=== PATIENT | female | born 1990 | race Caucasian/White ===

== ENCOUNTER 2022-05-10 16:06 | Emergency (ER) | payer BC, SELFPAY ==
[2022-05-10 18:03] VITALS: BP 153/99; PULSE 113; RESP 18; TEMP 38.4; O2SAT 95; BMI 68.3
--- NOTE | 2022-05-10 18:24 | ED_ITS ---
HPI - General Adult General Chief complaint: General Medical Stated complaint: strep turned to an abscess/ sent from dr office Time Seen by Provider: 05/10/22 16:52 Source: patient Mode of arrival: ambulatory Limitations: no limitations History of Present Illness HPI narrative: Patient with sore throat seen urgent care on 05/07 strep was negative came here as pain in throat getting worse painful to swallow low grade fever has some chills no shortness of breath or cough voice is normal Related Data Home Medications Medication Instructions Recorded Confirmed hydrochlorothiazide 25 mg tablet 37.5 mg PO DAILY 05/07/22 levothyroxine 75 mcg tablet 75 mcg PO DAILY 05/07/22 lisinopril 10 mg tablet 10 mg PO DAILY 05/07/22 loratadine 10 mg tablet (Claritin) 10 mg PO DAILY 05/07/22 Previous Rx's Medication Instructions Recorded azithromycin 250 mg tablet See Rx Instructions PO .COMPLEX #6 05/07/22 tabs fluconazole 150 mg tablet 150 mg PO Q3D 2 doses #2 tabs 05/07/22 (Diflucan) cefuroxime axetil 500 mg tablet 500 mg PO BID 10 days #20 tabs 05/10/22 ibuprofen 100 mg/5 mL oral 600 mg (30 mL) PO Q6H PRN fever or 05/10/22 suspension pain #250 mL Allergies Allergy/AdvReac Type Severity Reaction Status Date / Time tree nut [TREE NUT] Allergy Severe ITCHING Unverified 05/07/22 09:18 AND SOB TREE FRUIT Allergy Severe ITCHING, Uncoded 05/07/22 09:18 SOB Review of Systems Review of Systems: Yes all other systems are reviewed and are negative [facility] Social History Social History Advance Directives: No Advance Directives Information Provided: No Physical Exam ED Vital Signs: Vital Signs - 24 hr 05/10/22 18:03 05/10/22 18:44 05/10/22 19:53 Temperature 101.1 F H 100.0 F 100.5 F H Pulse Rate 113 H 116 H 110 H Respiratory Rate 18 16 18 Blood Pressure 153/99 H 148/100 H 153/107 H Pulse Oximetry 95 96 96 Oxygen Delivery Method Room Air Room Air BMI result Body Mass Index 68.3 Appearance: Alert. Oriented X3. No acute distress. Eyes: PERRLA, No Nystagmus ENT: Erythema posterior pharynx with exudate on bilateral tonsils Neck: Normal inspection. Neck supple. CVS: Normal heart rate and rhythm. Pulses normal. Respiratory: No respiratory distress. Equal air entry bilateral, no wheezing/rales/rhonchi Abdomen: Soft and nontender. Bowel sounds are present, no mass palpable, no CVA tenderness Skin: Skin warm and dry. Normal skin color. Normal skin turgor. Extremities: No lower extremity edema. No calf tenderness Neuro: Oriented X 3. No motor deficit. No sensory deficit.No cerebellar signs , cranial nerves II-XII intact Medical Decision Making MDM Narrative Medical decision making narrative: Patient clinically has strep throat was given IM Rocephin in the ER will give prescription for Ceftin advised to follow-up as outpatient Discharge Plan Discharge Clinical Impression: Strep pharyngitis Patient Disposition: Home, Self-Care Instructions: Strep Throat (ED) Additional Instructions: Drink plenty of fluids Antibiotics as prescribed Follow with PCP if not better Prescriptions: New cefuroxime axetil 500 mg tablet 500 mg PO BID 10 Days Qty: 20 0RF ibuprofen 100 mg/5 mL suspension 600 mg PO Q6H PRN (Reason: fever or pain) Qty: 250 0RF No Action levothyroxine 75 mcg tablet 75 mcg PO DAILY hydrochlorothiazide 25 mg tablet 37.5 mg PO DAILY lisinopril 10 mg tablet 10 mg PO DAILY loratadine [Claritin] 10 mg tablet 10 mg PO DAILY azithromycin 250 mg tablet See Rx Instructions PO .COMPLEX Qty: 6 0RF Rx Instructions: take 500 mg today (day 1), then 250 mg for 4 days (days 2-5) PO fluconazole [Diflucan] 150 mg tablet 150 mg PO Q3D 0 Days Qty: 2 0RF Interventions: ED Discharge Assessment Last Done: 05/10/22 19:56 Discharge Date/Time: 05/10/22 19:56
[2022-05-10 18:44] VITALS: BP 148/100; PULSE 116; RESP 16; TEMP 37.8; O2SAT 96
[2022-05-10] MEDS: cefTRIAXone sodium 1 GM, Lidocaine HCl 1 % MPF 2.1 ML IM (18:49)
[2022-05-10] MEDS: Acetaminophen Oral Liquid 650 MG/20.3 ML SOLUTION PO (18:49)
[2022-05-10] MEDS: Lidocaine HCl Viscous 2 % 15 ML SOLUTION MUCOUS MEM (19:52)
[2022-05-10] MEDS: Ibuprofen Oral Susp 200 MG/10 ML ORAL.SUSP 600 MG PO (19:52)
[2022-05-10 19:53] VITALS: BP 153/107; PULSE 110; RESP 18; TEMP 38.1; O2SAT 96
== END 2022-05-10 19:56 | disposition home or self-care (01) ==
PROVIDERS: Emergency Provider Internal Medicine; PCP Internal Medicine
DX: J02.0 Streptococcal pharyngitis (principal); Z79.899 Other long term (current) drug therapy
CPT/HCPCS: 96365; 99283; 99284; J0696

== ENCOUNTER 2022-05-12 15:20 | Emergency (ER) | payer BC, SELFPAY ==
--- NOTE | ~2022-05-12 | CT_ITS ---
EXAMINATION: CT SOFT TISSUE NECK WITHOUT CONTRAST CLINICAL INFORMATION: Enlarged tonsils. Concern for peritonsillar abscess. COMPARISON: None TECHNIQUE: Helical imaging was performed in the axial plane with generation of coronal and sagittal reformatted images. This CT examination was performed using dose optimization techniques as appropriate, variously including the following: *Automated exposure control *Adjustment of mA and/or kV according to patient size (this includes techniques or standardized protocols for targeted exams where dose is matched to indication/reason for exam; i.e. extremities or head) *Use of iterative reconstruction technique DLP: 971 mGy-cm FINDINGS: Enlargement of the palatine tonsils bilaterally narrowing the nasopharyngeal air space opacities but does not occlude air passage. There is no enlargement of the adenoids. There is no abscess. There are enlarged bilateral lymph nodes in the neck. Largest lymph nodes having a short axis diameter of 2 cm level 2A. The fat planes through the neck are normal. Faintly calcified peripheral left lobe thyroid nodule measuring 1.7 cm. Parotid glands and submandibular glands are normal. Lung apices are clear. Normal aeration of paranasal sinuses. Orbits unremarkable. Partially visualized intracranial structures are normal. CT/CT soft tissue neck wo con IMPRESSION: 1. Enlargement of palatine tonsils bilaterally but there is no abscess or fluid collection. 2. Lymphadenopathy in the neck bilaterally which is likely reactive. 3. 1.7 cm left lobe thyroid nodule. Recommend nonemergent thyroid ultrasound..
[2022-05-12 15:26] VITALS: BP 174/103; PULSE 113; RESP 18; TEMP 37.1; O2SAT 94; BMI 68.3
[2022-05-12 15:54] LABS: COVID-19 Test Negative (Negative)
[2022-05-12 15:58] LABS: IDNOW Serial# 16C4AD1C; Influenza A Negative (Negative); Influenza B2 Negative (Negative)
[2022-05-12 16:03] LABS: Strep A Nucleic Acid Negative (Negative)
[2022-05-12 17:46] VITALS: BP 152/98; PULSE 107; RESP 18; TEMP 38.9; O2SAT 97
[2022-05-12] MEDS: Acetaminophen 325 MG TABLET 650 MG PO (18:30)
[2022-05-12 18:39] LABS: Monotest Negative (Negative)
--- NOTE | 2022-05-12 18:41 | ED_ITS ---
HPI - URI/Sore Throat General Chief Complaint: Upper Respiratory Symptoms Stated Complaint: throat in severe pain unable to take anythinh in Time Seen by Provider: 05/12/22 17:53 Source: patient Mode of arrival: ambulatory Limitations: no limitations History of Present Illness HPI Narrative: This is a 32-year-old female presenting to the emergency department with sore throat x6 days. Patient tells me she has been evaluated both at urgent care and in the emergency department for this sore throat that seems to be getting worse each day. Patient tells me that her throat hurts a lot and it norris, she tells me at times she feels like her ears also hurt. She was prescribed a Z-Juan F initially which she feels like did nothing for her. Then she took cefuroxime axetil and she tells me she feels like this isn't helping, she started this antibiotic on May 10. She tells me she is having issues swallowing her saliva well. And she has also not been able to eat or drink much due to pain. She also reports that she noticed that her voice is different, has a hard time describing how it is different. She also reports subjective fevers and chills. Patient reports that she has no sick contacts. Patient has never had mono before. Patient denies headache, dizziness, vision changes, nausea, vomiting, abdominal pain, chest pain, shortness of breath. Throughout my history she is spitting into a bag that she tells me she is having hard time swallowing her saliva. MD elicited complaint: sore throat Onset (ago): day(s) (6) Consistency: constant Severity: severe Pain scale (0-10): 10 Related Data Home Medications Medication Instructions Recorded Confirmed hydrochlorothiazide 25 mg tablet 37.5 mg PO DAILY 05/07/22 levothyroxine 75 mcg tablet 75 mcg PO DAILY 05/07/22 lisinopril 10 mg tablet 10 mg PO DAILY 05/07/22 loratadine 10 mg tablet (Claritin) 10 mg PO DAILY 05/07/22 Previous Rx's Medication Instructions Recorded azithromycin 250 mg tablet See Rx Instructions PO .COMPLEX #6 05/07/22 tabs fluconazole 150 mg tablet 150 mg PO Q3D 2 doses #2 tabs 05/07/22 (Diflucan) cefuroxime axetil 500 mg tablet 500 mg PO BID 10 days #20 tabs 05/10/22 ibuprofen 100 mg/5 mL oral 600 mg (30 mL) PO Q6H PRN fever or 05/10/22 suspension pain #250 mL Magic Mouthwash 10 ml PO BID #240 mL 05/12/22 Diphen/Lido/Antacid 1:1:1 240 mL suspension Allergies Allergy/AdvReac Type Severity Reaction Status Date / Time tree nut [TREE NUT] Allergy Severe ITCHING Unverified 05/07/22 09:18 AND SOB TREE FRUIT Allergy Severe ITCHING, Uncoded 05/07/22 09:18 SOB Review of Systems Review of Systems: Constitutional : No Weight loss, No Fever, No Chills, No Fatigue, No Malaise ENT/Mouth : No sore throat, No Rhinorrhea Eyes: No Eye Pain, No Swelling, No Redness Cardiovascular : No Chest Pain, No SOB, No Dyspnea on Exertion, No Orthopnea, No Edema, No Palpitations Respiratory : No Cough, No Sputum, No Wheezing Gastrointestinal : No Nausea, No Vomiting, No Diarrhea, No Constipation, No abdominal Pain, No Hematochezia, No Melena Genitourinary : No Dysuria, No Urinary Frequency, No Hematuria, Musculoskeletal : No joint pain, No Myalgias, No Joint Swelling Skin : No Skin Lesions, No rash Neuro : No Weakness, No Numbness, No Dizziness, No Headache Psych : No Anxiety/Panic, No Depression All other systems reviewed and are negative Yes all other systems are reviewed and are negative [facility] Past Medical History Attestation statement: The following information was validated with the patient. Source: old records reviewed and nursing notes reviewed Social History Social History Advance Directives: No Advance Directives Information Provided: No Physical Exam Vital Signs: Vital Signs: Last Vital Signs Temp 99.9 F 05/12/22 21:29 Pulse 88 05/12/22 21:29 Resp 18 05/12/22 21:29 BP 130/77 05/12/22 21:29 Pulse Ox 98 05/12/22 21:29 O2 Del Method 05/12/22 21:29 BMI result Body Mass Index 68.3 Vital signs stable. Appearance: Alert.? Oriented X3.? No acute distress.? patient with muffled voice, and spitting into a emesis bag due to difficulty swallowing secretions. Head: Normocephalic, atraumatic, no step-offs or deformities Eyes: Pupils equal, round and reactive to light.? ENT: Posterior pharynx with erythema, bilateral tonsils erythematous, edematous with exudates bilaterally. Uvula appears to be midline. No signs of abscess Neck: Normal inspection.? Neck supple.? No palpable cervical or occipital lymphadenopathy. CVS: Normal heart rate and rhythm.? Pulses normal.? Respiratory: No respiratory distress.? Breath sounds normal.? no stridor Abdomen: Soft and nontender.? Skin: Skin warm and dry.? Normal skin color.? Normal skin turgor.? Extremities: No lower extremity edema.? No calf ttp. 5/5 strength to bilateral upper and lower extremities Neuro: Oriented X 3.? No motor deficit.? No sensory deficit. CN 2-12 intact Course Reevaluation(s) Reevaluation #1: CT of the soft tissue neck with enlargement of the palatine tonsils bilaterally without abscess or fluid collection. There is lymphadenopathy in the neck bilaterally, likely reactive. A 1.7 cm left lobe thyroid nodule was noted and patient has been educated on this finding, advised to follow-up with her PCP for thyroid ultrasound outpatient. No need for an emergent ultrasound at this time. CBC With no acute findings. No leukocytosis, likely viral pharyngitis, I went to take another look at patient's throat it appears as though there are ulcerations on patient's tonsils bilaterally, concerning for possible Coxsackie virus. I discussed this case with my attending who believes that this is Coxsackie virus, plan at this time is to discharge patient home, likely viral pharyngitis. Unlikely bacterial. No need for discharging patient on p.o. steroids as a dose of Decadron was given here. Patient is tolerating p.o. fluids and food. Patient is no longer spitting into a bag, she is reporting relief. Speaking in full sentences, voice improved. Patient appears slightly better and she is now afebrile. I had a long conversation with patient about strict return precautions and when to return to the emergency department also outlined these on her discharge. At this time I feel comfortable with discharge home with ENT follow-up. Time: 23:06 MDM - URI/Sore Throat MDM Narrative Medical decision making narrative: 183 32-year-old female presents with sore throat x6 days, not responding to antibiotics. Also reports anorexia, fevers, chills. Physical examination with patient's spitting into an emesis bag, with a muffled voice. Bilateral tonsils erythematous, edematous with exudates bilaterally. Patient's uvula is midline. Difficult to assess whether not there is a peritonsillar abscess behind these enlarged tonsils. upon review of vital signs patient is noted to be tachycardic and febrile while in the department. When she was out in the waiting room she was not febrile. History and physical examination likely pharyngitis, low suspicion for mart tonsillar abscess. Unlikely that this is epiglottitis. At this time is to obtain lab work, monospot, blood cultures, lactic acid, will also give patient antibiotics clindamycin as she has failed outpatient therapy will also give her dexamethasone 8 mg p.o. for significant tonsillar swelling. Tylenol was given for fever. Case discussed w/ Dr. Cotter. Medical Records Attestation: I reviewed the patient's medical records. Lab Data Attestation: I reviewed the patient's lab results. Result diagrams: 05/12/22 19:28 05/12/22 19:28 Labs: Lab Results 05/12/22 05/12/22 05/12/22 Range/Units 15:32 15:32 15:32 WBC (4.8-10.8) X10*3/uL RBC (4.20-5.50) X10*6/uL Hgb (12.0-16.0) g/dl Hct (37.0-47.0) % MCV (80.0-98.0) fL MCH (27.0-33.0) pg MCHC (31.0-35.0) g/dl RDW (11.0-16.0) % Plt Count (160-400) X10*3/uL MPV (9.4-12.3) fL Immature Gran % (Auto) (0.0-0.4) % Neut % (Auto) (45-73) % Lymph % (Auto) (20-40) % [place] % (Auto) (2-11) % Eos % (Auto) (0-4) % Baso % (Auto) (0-2) % Lymph # (Auto) (1.2-4.9) X10*3/uL [place] # (Auto) (0.1-1.2) X10*3/uL Eos # (Auto) (0.0-0.4) X10*3/uL Baso # (Auto) (0.0-0.2) X10*3/uL Abs Immat Gran (auto) (0.00-0.03) X10*3/uL Absolute Neuts (auto) (2.0-8.3) x10*3/uL Absolute Nucleated RBC (0.0-0.012) X10*3/uL Nucleated RBC % (auto) (0.0-0.2) /100WBC Sodium (135-145) mmol/L Potassium (3.3-5.1) mmol/L Chloride (96-108) mmol/L Carbon Dioxide (22-29) mmol/L Anion Gap (12-20) BUN (9-16) mg/dL Creatinine (0.5-1.4) mg/dL Estim Creat Clear Calc Estimated GFR Random Glucose (60-115) mg/dL Lactic Acid (0.5-2.0) mmol/L Calcium (8.4-10.2) mg/dL Total Bilirubin (0.0-1.0) mg/dL AST (5-31) U/L ALT (0-31) U/L Alkaline Phosphatase (39-117) U/L Total Protein (6.5-8.0) g/dL Albumin (3.5-5.0) g/dL COVID-19 (SVETA) Negative (Negative) COVID-19 Clin Com See Note Monoscreen (Negative) Influenza Type A (REUBEN) Negative (Negative) Influenza Type B (REUBEN) Negative (Negative) Influenza A & B Note See Note S. pyogenes GrpA REUBEN Negative (Negative) 05/12/22 05/12/22 05/12/22 Range/Units 18:17 19:28 19:28 WBC 9.0 (4.8-10.8) X10*3/uL RBC 4.72 (4.20-5.50) X10*6/uL Hgb 13.8 (12.0-16.0) g/dl Hct 41.1 (37.0-47.0) % MCV 87.1 (80.0-98.0) fL MCH 29.2 (27.0-33.0) pg MCHC 33.6 (31.0-35.0) g/dl RDW 13.0 (11.0-16.0) % Plt Count 258 (160-400) X10*3/uL MPV 11.2 (9.4-12.3) fL Immature Gran % (Auto) 0.6 H (0.0-0.4) % Neut % (Auto) 69.5 (45-73) % Lymph % (Auto) 21.3 (20-40) % [place] % (Auto) 6.9 (2-11) % Eos % (Auto) 1.1 (0-4) % Baso % (Auto) 0.6 (0-2) % Lymph # (Auto) 1.9 (1.2-4.9) X10*3/uL [place] # (Auto) 0.6 (0.1-1.2) X10*3/uL Eos # (Auto) 0.1 (0.0-0.4) X10*3/uL Baso # (Auto) 0.1 (0.0-0.2) X10*3/uL Abs Immat Gran (auto) 0.05 H (0.00-0.03) X10*3/uL Absolute Neuts (auto) 6.3 (2.0-8.3) x10*3/uL Absolute Nucleated RBC 0.000 (0.0-0.012) X10*3/uL Nucleated RBC % (auto) 0.0 (0.0-0.2) /100WBC Sodium 139 (135-145) mmol/L Potassium 3.9 (3.3-5.1) mmol/L Chloride 105 (96-108) mmol/L Carbon Dioxide 22 (22-29) mmol/L Anion Gap 16 (12-20) BUN 12 (9-16) mg/dL Creatinine 0.95 (0.5-1.4) mg/dL Estim Creat Clear Calc 140.9 Estimated GFR > 60 Random Glucose 112 (60-115) mg/dL Lactic Acid (0.5-2.0) mmol/L Calcium 9.1 (8.4-10.2) mg/dL Total Bilirubin 0.7 (0.0-1.0) mg/dL AST 29 (5-31) U/L ALT 41 H (0-31) U/L Alkaline Phosphatase 92 (39-117) U/L Total Protein 7.9 (6.5-8.0) g/dL Albumin 4.4 (3.5-5.0) g/dL COVID-19 (SVETA) (Negative) COVID-19 Clin Com Monoscreen Negative (Negative) Influenza Type A (REUBEN) (Negative) Influenza Type B (REUBEN) (Negative) Influenza A & B Note S. pyogenes GrpA REUBEN (Negative) 05/12/22 Range/Units 19:28 WBC (4.8-10.8) X10*3/uL RBC (4.20-5.50) X10*6/uL Hgb (12.0-16.0) g/dl Hct (37.0-47.0) % MCV (80.0-98.0) fL MCH (27.0-33.0) pg MCHC (31.0-35.0) g/dl RDW (11.0-16.0) % Plt Count (160-400) X10*3/uL MPV (9.4-12.3) fL Immature Gran % (Auto) (0.0-0.4) % Neut % (Auto) (45-73) % Lymph % (Auto) (20-40) % [place] % (Auto) (2-11) % Eos % (Auto) (0-4) % Baso % (Auto) (0-2) % Lymph # (Auto) (1.2-4.9) X10*3/uL [place] # (Auto) (0.1-1.2) X10*3/uL Eos # (Auto) (0.0-0.4) X10*3/uL Baso # (Auto) (0.0-0.2) X10*3/uL Abs Immat Gran (auto) (0.00-0.03) X10*3/uL Absolute Neuts (auto) (2.0-8.3) x10*3/uL Absolute Nucleated RBC (0.0-0.012) X10*3/uL Nucleated RBC % (auto) (0.0-0.2) /100WBC Sodium (135-145) mmol/L Potassium (3.3-5.1) mmol/L Chloride (96-108) mmol/L Carbon Dioxide (22-29) mmol/L Anion Gap (12-20) BUN (9-16) mg/dL Creatinine (0.5-1.4) mg/dL Estim Creat Clear Calc Estimated GFR Random Glucose (60-115) mg/dL Lactic Acid 0.9 (0.5-2.0) mmol/L Calcium (8.4-10.2) mg/dL Total Bilirubin (0.0-1.0) mg/dL AST (5-31) U/L ALT (0-31) U/L Alkaline Phosphatase (39-117) U/L Total Protein (6.5-8.0) g/dL Albumin (3.5-5.0) g/dL COVID-19 (SVETA) (Negative) COVID-19 Clin Com Monoscreen (Negative) Influenza Type A (REUBEN) (Negative) Influenza Type B (REUBEN) (Negative) Influenza A & B Note S. pyogenes GrpA REUBEN (Negative) Critical Care Time Critical Care Time Critical Care Time: Yes Total Critical Care Time: 35 Attestation: I attest to this time spent taking care of the patient, obtaining history, physical, reviewing labs, imaging, speaking to my attending, Discharge Plan Discharge Clinical Impression: Pharyngitis Patient Disposition: Home, Self-Care Instructions: Pharyngitis (ED) Additional Instructions: Take your medications as prescribed. If you were prescribed antibiotics today, it is important that you take your medication to their entirety, do not skip any doses, do not finish them early. Follow-up with your primary care provider this week. Return to the emergency department with new or worsening symptoms. Such as fevers, chills, chest pain, shortness of breath, nausea, vomiting, dizziness, headache, vision changes, lethargy In case of emergency call 911 Gargle with warm salt water. Viral cultures pending at this time you will be called if abnormal. Prescriptions: New Magic Mouthwash Diphen/Lido/Antacid 1:1:1 240 mL suspension 10 ml PO BID Qty: 240 0RF Rx Instructions: Lidocaine Viscous 2 % 80mL; diphenhydramine 12.5 mg/5 mL 80mL; aluminum-mag hydrox-simeth [id number]/5mL 80mL No Action cefuroxime axetil 500 mg tablet 500 mg PO BID 10 Days Qty: 20 0RF ibuprofen 100 mg/5 mL suspension 600 mg PO Q6H PRN (Reason: fever or pain) Qty: 250 0RF levothyroxine 75 mcg tablet 75 mcg PO DAILY hydrochlorothiazide 25 mg tablet 37.5 mg PO DAILY lisinopril 10 mg tablet 10 mg PO DAILY loratadine [Claritin] 10 mg tablet 10 mg PO DAILY azithromycin 250 mg tablet See Rx Instructions PO .COMPLEX Qty: 6 0RF Rx Instructions: take 500 mg today (day 1), then 250 mg for 4 days (days 2-5) PO fluconazole [Diflucan] 150 mg tablet 150 mg PO Q3D 0 Days Qty: 2 0RF Referrals: Physician,None [Primary Care Provider] - 2 days Rainer Rausch [Physician] - 1 day Stand Alone Forms: Work/School Release
[2022-05-12 19:36] LABS: MANUAL DIFF FLAG NO
[2022-05-12 19:37] LABS: Basophils Absolute Auto 0.1 X10*3/uL (0.0-0.2); Basophils Percent Auto 0.6 % (0-2); Eosinophils Absolute Auto 0.1 X10*3/uL (0.0-0.4); Eosinophils Percent Auto 1.1 % (0-4); Hematocrit 41.1 % (37.0-47.0); Hemoglobin 13.8 g/dl (12.0-16.0); Imm Gran Abs Auto 0.05 X10*3/uL (0.00-0.03); Imm Gran Pct Auto 0.6 % (0.0-0.4); Lymphocytes Absolute Auto 1.9 X10*3/uL (1.2-4.9); Lymphocytes Percent Auto 21.3 % (20-40); Mean Corpuscular HGB Conc 33.6 g/dl (31.0-35.0); Mean Corpuscular Hemoglobin 29.2 pg (27.0-33.0); Mean Corpuscular Volume 87.1 fL (80.0-98.0); Mean Platelet Volume 11.2 fL (9.4-12.3); Monocytes Absolute Auto 0.6 X10*3/uL (0.1-1.2); Monocytes Percent Auto 6.9 % (2-11); Neutrophils Absolute Auto 6.3 x10*3/uL (2.0-8.3); Neutrophils Percent Auto 69.5 % (45-73); Platelet Count 258 X10*3/uL (160-400); Red Blood Count 4.72 X10*6/uL (4.20-5.50)
[2022-05-12 19:49] LABS: Lactic Acid 0.9 mmol/L (0.5-2.0)
[2022-05-12 19:53] LABS: Alanine Aminotransferase 41 U/L (0-31); Albumin Level 4.4 g/dL (3.5-5.0); Alkaline Phosphatase 92 U/L (39-117); Anion Gap 16 (12-20); Aspartate Amino Transferase 29 U/L (5-31); Bilirubin Total 0.7 mg/dL (0.0-1.0); Blood Urea Nitrogen 12 mg/dL (9-16); Calcium 9.1 mg/dL (8.4-10.2); Carbon Dioxide 22 mmol/L (22-29); Chloride 105 mmol/L (96-108); Creatinine Clr Calc Pharmacy 140.9; Estimated Glomerular Filt Rate > 60; Glucose Random 112 mg/dL (60-115); Potassium 3.9 mmol/L (3.3-5.1); Sodium 139 mmol/L (135-145); Total Protein 7.9 g/dL (6.5-8.0)
[2022-05-12] MEDS: dexAMETHasone sod phosphate 4 MG/ML VIAL 8 MG IVPUSH (20:23)
[2022-05-12] MEDS: Clindamycin Phosphate/D5W 600 MG/50 ML PIGGYBACK 100 MG IV (20:24)
[2022-05-12] MEDS: 0.9 % Sodium Chloride 1,000 ML 999 ML IV (20:25)
[2022-05-12] MEDS: ondansetron HCL 4 MG/2 ML VIAL IVPUSH (21:12)
[2022-05-12] MEDS: Ibuprofen 600 MG TABLET PO (21:17)
[2022-05-12 21:29] VITALS: BP 130/77; PULSE 88; RESP 18; TEMP 37.7; O2SAT 98
== END 2022-05-12 23:27 | disposition home or self-care (01) ==
PROVIDERS: Physician Assistant; Emergency Provider Internal Medicine
DX: H92.03 Otalgia, bilateral (principal); J02.9 Acute pharyngitis, unspecified; Z20.822 Contact with and (suspected) exposure to COVID-19; Z79.899 Other long term (current) drug therapy
CPT/HCPCS: 36415; 70490; 80053; 83605; 85025; 86308; 87040; 87255; 87502; 87635; 87651; 96365; 96374; 96375; 99284; J1100; J2405

== ENCOUNTER 2024-07-21 12:21 | Emergency (ER) | payer OTHER, SELFPAY ==
--- NOTE | ~2024-07-21 | XR_ITS ---
EXAMINATION: XR HAND/WRIST, RIGHT CLINICAL INFORMATION: Fall, pain COMPARISON: X-ray of right finger from 02/03/2015 TECHNIQUE: PA, lateral, and oblique views of the right hand and wrist. FINDINGS: The soft tissues are normal. No acute fracture. Foreshortened fifth metacarpal unchanged in overall appearance compared to the prior exam which could be congenital versus posttraumatic. Alignment is anatomic. Joint spaces are maintained. No erosions or soft tissue calcifications. XR/XR hand wrist RT IMPRESSION: No acute process Electronically signed by: Thomas Anaya MD 07/21/2024 02:06 PM EDT
[2024-07-21 12:58] VITALS: BP 173/110; PULSE 78; RESP 16; TEMP 36.9; O2SAT 98; BMI 66.8
--- NOTE | 2024-07-21 13:00 | ED.FALL ---
HPI - Fall General Chief Complaint: Extremity Injury, Upper Stated Complaint: r hand inj-knee inj-fall Time Seen by Provider: 07/21/24 16:42 Source: patient Mode of arrival: ambulatory Limitations: no limitations History of Present Illness ED Provider: Lanie marin HPI Narrative: 34-year-old female with past medical history of hypertension presents to the ED for right hand pain. Patient states she tripped and fell on the curb prior to arrival. Patient fell on outstretched hands. Patient denies hitting head of the loss of consciousness. Patient denies any other complaints Related Data Home Medications ?Medication ?Instructions ?Recorded ?Confirmed hydrochlorothiazide 25 mg tablet 37.5 mg PO DAILY 05/07/22 levothyroxine 75 mcg tablet 75 mcg PO DAILY 05/07/22 lisinopril 10 mg tablet 10 mg PO DAILY 05/07/22 loratadine 10 mg tablet (Claritin) 10 mg PO DAILY 05/07/22 Previous Rx's ?Medication ?Instructions ?Recorded azithromycin 250 mg tablet See Rx Instructions PO .COMPLEX #6 05/07/22 tabs fluconazole 150 mg tablet 150 mg PO Q3D 2 doses #2 tabs 05/07/22 (Diflucan) cefuroxime axetil 500 mg tablet 500 mg PO BID 10 days #20 tabs 05/10/22 ibuprofen 100 mg/5 mL oral 600 mg (30 mL) PO Q6H PRN fever or 05/10/22 suspension pain #250 mL Magic Mouthwash 10 ml PO BID #240 mL 05/12/22 Diphen/Lido/Antacid 1:1:1 240 mL suspension ciprofloxacin 0.3 %-dexamethasone 4 drp otic (ears) BID 7 days #7.5 05/12/22 0.1 % ear drops,suspension mL (Ciprodex) acyclovir 400 mg tablet 400 mg PO TID herpes oral 10 days 05/20/22 #30 tabs naproxen 500 mg tablet 500 mg PO BID PRN pain 7 days #14 07/21/24 tabs Allergies Allergy/AdvReac Type Severity Reaction Status Date / Time tree nut [TREE NUT] Allergy Severe ITCHING Verified 07/21/24 13:02 AND SOB TREE FRUIT Allergy Severe ITCHING, Uncoded 05/07/22 09:18 SOB PMFSH Social History Social History Advance Directives: No Advance Directives Information Provided: No Do you have a plan to hurt others: No Plan Physical Exam Vital Signs: Vital Signs: Last Vital Signs Temp 98.1 F 07/21/24 18:53 Pulse 87 07/21/24 18:53 Resp 20 07/21/24 18:53 BP 163/90 H 07/21/24 18:53 Pulse Ox 97 07/21/24 18:53 O2 Del Method Room Air 07/21/24 18:53 BMI result Body Mass Index 66.8 Const: General: cooperative, healthy appearing and comfortable Orientation/consciousness: patient oriented x3 HEENT: Head: Yes normal to inspection, Yes No palpable skull fracture present, Yes normocephalic and Yes atraumatic Eyes: General: appearance normal, both eyes and all related structures Neck: Neck: Yes normal visual inspection, Yes full ROM, Yes no lymphadenopathy, Yes no meningeal signs, Yes trachea midline, Yes supple, No anterior neck swelling and No tender Chest: Chest palpation & inspection: normal inspection of the chest and normal palpation of entire chest wall Resp: Effort & Inspection: normal respiratory effort and able to speak in complete sentences Auscultation: clear to auscultation bilaterally Cardio: Jugular venous distension: no JVD Heart sounds: S1 normal heart sound present and S2 normal heart sound present GI: Inspection: Yes normal to inspection Palpation (GI): Soft to palpation, not firm, nontender, no guarding and not rigid : General: No CVA tenderness and Yes no CVA tenderness Back/Spine/Pelvis: Back: no CVA tenderness, No CVA tenderness and No back tenderness Skin: General skin exam: no rashes or lesions noted, elasticity normal and turgor normal Neuro: General: patient oriented x3, gait normal, tone normal, moves all extremities, Normal light touch and pain sensation, no meningeal signs, no focal motor deficits, CN's II-XI intact bilaterally and normal sensation to monofilament Extrem: General: Yes normal to inspection, Yes full ROM and Yes capillary refill normal Hand/finger images: 1. Positive for tenderness on palpation. Negative for crepitus, ecchymosis, or deformity. Positive for pain on palpation. Motor/neuro/vascular exam intact Psych: Appearance: grossly normal, well kempt and not disheveled Course Course Course Narrative: This is an RME performed by Alfa Jacob CNP: Additional HPI, ROS, PE not included below will be deferred to primary provider. Patient is a 34 year old female right-hand dominant presents to the emergency department for evaluation. She states that she sustained a mechanical trip and fall prior to arrival resulting in discomfort to the bilateral knees with full range of motion and ambulatory with a steady gait. Has pain to the right hand and wrist, inability to extend digit 4th and 5th digit. Denies numbness or tingling. Plan: XR Medications Administered Discontinued Medications Generic Name Dose Route Start Last Admin Trade Name Freq PRN Reason Stop Dose Admin Ibuprofen 800 mg 07/21/24 17:46 07/21/24 18:14 Ibuprofen 800 Mg Tablet PO 07/21/24 17:47 800 mg ONCE ONE Administration Medical Decision Making Medical Decision Making MDM Narrative: 34-year-old female with right hand pain after falling onto outstretched hand while trying to break her fall. She denies hitting head or loss of consciousness. Patient states no other complaints. Hand x-ray normal. Negative for any fractures. . Not suspecting compartment syndrome, DVT, cellulitis, or osteomylieitis. Not suspecting arterial occlusion. lower extremities negative for trauma and are normal. Differential Diagnosis Differential Diagnoses: The differential diagnosis associated with the presentation includes (Hand fracture, dislocation,) Admission/Observation Consideration of admission/observation: Escalation of care including admission/observation considered Independent Interpretation I performed an independent interpretation of an: Plain X-Ray Radiology Impression Discussion of test interpretation with radiology: I have reviewed the radiologist's reading. Independent Historian Clinical information obtained from an independent historian. History obtained from or confirmed by: Other (Patient) External Record Review External record reviewed: Other (Prior visits) Discharge Plan Discharge Clinical Impression: Hand sprain Patient Disposition: Home, Self-Care Instructions: Sprain (ED), How to Use an Elastic Bandage (ED) Additional Instructions: Return to the ED immediately for swelling, redness, hotness, coldness, ecchymosis, severe pain,, red streaks, or any other concerning symptoms. Recommend follow up with primary care provider Prescriptions: New naproxen 500 mg tablet 500 mg PO BID PRN (Reason: pain) 7 Days Qty: 14 0RF No Action cefuroxime axetil 500 mg tablet 500 mg PO BID 10 Days Qty: 20 0RF ibuprofen 100 mg/5 mL suspension 600 mg PO Q6H PRN (Reason: fever or pain) Qty: 250 0RF Magic Mouthwash Diphen/Lido/Antacid 1:1:1 240 mL suspension 10 ml PO BID Qty: 240 0RF Rx Instructions: Lidocaine Viscous 2 % 80mL; diphenhydramine 12.5 mg/5 mL 80mL; aluminum-mag hydrox-simeth [id number]/5mL 80mL ciprofloxacin-dexamethasone [Ciprodex] 0.3-0.1 % drops,suspension 4 drp otic (ears) BID 7 Days Qty: 7.5 0RF acyclovir 400 mg tablet 400 mg PO TID 10 Days Qty: 30 0RF levothyroxine 75 mcg tablet 75 mcg PO DAILY hydrochlorothiazide 25 mg tablet 37.5 mg PO DAILY lisinopril 10 mg tablet 10 mg PO DAILY loratadine [Claritin] 10 mg tablet 10 mg PO DAILY azithromycin 250 mg tablet See Rx Instructions PO .COMPLEX Qty: 6 0RF Rx Instructions: take 500 mg today (day 1), then 250 mg for 4 days (days 2-5) PO fluconazole [Diflucan] 150 mg tablet 150 mg PO Q3D 0 Days Qty: 2 0RF Stand Alone Forms: Work/School Release Interventions: ED Discharge Assessment Last Done: 07/21/24 18:53 Discharge Date/Time: 07/21/24 18:55 Print Language: Serbian
[2024-07-21 15:59] VITALS: BP 168/90; PULSE 76; RESP 18; TEMP 37; O2SAT 98
[2024-07-21] MEDS: Ibuprofen 800 MG TABLET PO (18:14)
[2024-07-21 18:53] VITALS: BP 163/90; PULSE 87; RESP 20; TEMP 36.7; O2SAT 97
== END 2024-07-21 18:55 | disposition home or self-care (01) ==
PROVIDERS: Emergency Provider Emergency Medicine Emergency Medical Services; PCP Nurse Practitioner Family
DX: S63.91XA Sprain of unspecified part of right wrist and hand, initial encounter (principal); M25.531 Pain in right wrist; W01.0XXA Fall on same level from slipping, tripping and stumbling without subsequent striking against object, initial encounter; Y93.89 Activity, other specified; Y92.89 Other specified places as the place of occurrence of the external cause; Y99.8 Other external cause status; Z79.899 Other long term (current) drug therapy
CPT/HCPCS: 73110; 73130; 99283

== ENCOUNTER 2024-11-04 11:52 | Emergency (ER) | payer OTHER, SELFPAY ==
[2024-11-04 12:41] VITALS: BP 153/83; PULSE 100; RESP 20; TEMP 36.1; O2SAT 97; BMI 66.8
--- NOTE | 2024-11-04 12:41 | ED_ITS ---
HPI - General Adult General Chief complaint: Skin/Abscess/Foreign Body Stated complaint: infected bite ? Time Seen by Provider: 11/04/24 16:33 Source: patient Mode of arrival: ambulatory Limitations: no limitations History of Present Illness ED Provider: LYSSA GUERRA PA-C HPI narrative: 34 year old female presents to the ED today for evaluation of redness to right thigh which she noticed 2 days ago. She reports waking up Monday morning with an area of redness to her right thigh. Over the last 3 days, the redness has been spreading. Endorses tiny little dots around the area that has been draining a clear discharge. Admits to burning pain that has now extending to medial right thigh. Denies any known tick or insect bite. Admits to having chickenpox as a child. Denies fever, chills, vision changes, headache, rashes elsewhere on her body, sore throat. Denies new soaps, lotions, detergents. Denies new medications or antibiotics. Related Data Home Medications ?Medication ?Instructions ?Recorded ?Confirmed hydrochlorothiazide 25 mg tablet 37.5 mg PO DAILY 05/07/22 levothyroxine 75 mcg tablet 75 mcg PO DAILY 05/07/22 lisinopril 10 mg tablet 10 mg PO DAILY 05/07/22 loratadine 10 mg tablet (Claritin) 10 mg PO DAILY 05/07/22 Previous Rx's ?Medication ?Instructions ?Recorded azithromycin 250 mg tablet See Rx Instructions PO .COMPLEX #6 05/07/22 tabs fluconazole 150 mg tablet 150 mg PO Q3D 2 doses #2 tabs 05/07/22 (Diflucan) cefuroxime axetil 500 mg tablet 500 mg PO BID 10 days #20 tabs 05/10/22 ibuprofen 100 mg/5 mL oral 600 mg (30 mL) PO Q6H PRN fever or 05/10/22 suspension pain #250 mL Magic Mouthwash 10 ml PO BID #240 mL 05/12/22 Diphen/Lido/Antacid 1:1:1 240 mL suspension ciprofloxacin 0.3 %-dexamethasone 4 drp otic (ears) BID 7 days #7.5 05/12/22 0.1 % ear drops,suspension mL (Ciprodex) acyclovir 400 mg tablet 400 mg PO TID herpes oral 10 days 05/20/22 #30 tabs naproxen 500 mg tablet 500 mg PO BID PRN pain 7 days #14 07/21/24 tabs valacyclovir 1 gram tablet 1,000 mg PO TID 7 days #21 tabs 11/04/24 (Valtrex) Allergies Allergy/AdvReac Type Severity Reaction Status Date / Time tree nut [TREE NUT] Allergy Severe ITCHING Verified 11/04/24 12:42 AND SOB TREE FRUIT Allergy Severe ITCHING, Uncoded 11/04/24 12:42 SOB Review of Systems 2 Review of Systems: Constitutional: No fever, chills, fatigue, night sweats, weight changes ENT/Mouth: No ear pain, hearing loss, nasal congestion, sinus pain, rhinorrhea, sore throat Eyes: No eye pain, swelling, redness, vision changes, discharge Cardio: No chest pain, palpitations, NESS, orthopnea, peripheral edema Pulm: No SOB, cough, sputum, wheezing, dyspnea, hemoptysis GI: No nausea, vomiting, hematemesis, abdominal pain, diarrhea, constipation, hematochezia, melena : No irregular bleeding, dysuria, frequency, urgency, hesitancy, hematuria, flank pain, urinary flow changes, urinary incontinence or retention MSK: No back pain, neck pain, joint pain, myalgias Skin: No lesions, +rash Neuro: No weakness, numbness, paresthesias, LOC, dizziness, headache Psych: No anxiety/panic, depression, SI/HI, AH/VH All other systems reviewed and are negative. [facility] Past Medical History Attestation statement: The following information was validated with the patient. Source: old records reviewed and nursing notes reviewed Social History Social History Advance Directives: No Advance Directives Information Provided: No Physical Exam ED Vital Signs: Vital Signs - 24 hr 11/04/24 12:41 Temperature 97 F Pulse Rate 100 Respiratory Rate 20 Blood Pressure 153/83 H Pulse Oximetry 97 Oxygen Delivery Method Room Air BMI result Body Mass Index 66.8 Hypertensive, vitals otherwise WNL. Afebrile. General: Well appearing, in no acute distress. Skin: + see photo below + region of clear vesicles on erythematous base along the L3 dermatome of right thigh. This does not cross midline. No active drainage. No target lesions. No pointing or streaking. No involvement of mucous membranes. Spares palms, soles, web spaces. No sloughing. No warmth. Head: Normocephalic, atraumatic. EENT: Hearing is intact b/l. Conjunctiva clear. PERRLA. EOM intact. Moist mucous membranes.? Cardiac: Chest wall symmetric. RRR Lungs: Normal respiratory effort without accessory muscle use. CTA bilaterally Abdomen: Soft, non-tender, non-distended Back: No midline spinous or paraspinal tenderness. No step off deformity. Ext: + see above Neuro: AOx3. Normal speech. Ambulating with steady gait. Psych: Appropriate mood and affect. Responds appropriately to questions. Course Course Course Narrative: RME, this is a rapid medical exam performed by Wilber Ulloa please refer to primary provider for complete H&P- 34-year-old female presents for evaluation of a red, painful bump on her right thigh. She 1st noticed it on Monday, 2 days ago. She reports it is draining. Medical Decision Making Medical Decision Making MDM Narrative: 34 year old female presents to the ED today for evaluation of redness to right thigh which she noticed 2 days ago. Patient is hypertensive. Afebrile. Exam significant for region of clear vesicles on erythematous base along the L3 dermatome of right thigh. This does not cross midline. No active drainage. No target lesions. No pointing or streaking. No involvement of mucous membranes. Spares palms, soles, web spaces. No sloughing. No warmth. Rash is consistent with herpes zoster. Differential diagnosis includes contact/atopic/eczematous dermatitis, psoriasis. History and exam findings not consistent with lyme/tick bourne illness, scabies, HFM, dangerous etiologies of rash such as SJS/TEN, or secondary dangerous causes such as petechial rashes from thrombocytopenia or rickettsial infections.? No labs or imaging warranted at this time. There are no actively draining vesicles for me to send a culture on. Valtrex sent to pharmacy for treatment. Plan at this time is to treat for herpes zoster. Patient has remained stable throughout ED visit today. Discussed worrisome signs and symptoms and when to return to the ED. All questions answered at this time. Patient is agreeable with disposition and stable for discharge. Differential Diagnosis Differential Diagnoses: The differential diagnosis associated with the presentation includes As above Admission/Observation Not indicated Prescription Management I considered prescription management with: Antiviral (Valtrex) Social Determinants Patient?s care significantly limited by Social Determinants of Health including: Other Social Determinant of Health Critical Care Time Critical Care Time Critical Care Time: No Discharge Plan Discharge Clinical Impression: Shingles Patient Disposition: Home, Self-Care Instructions: Shingles (ED) Additional Instructions: You were evaluated in the ED today for a red area to your right thigh. Your physical exam is consistent with a shingles rash. This can occur when the chickenpox virus lays dormant in your body and then suddenly re-emerges. Treatment for this is with an antiviral. Valtrex has been sent to your pharmacy to treat this. As discussed, you are contagious until all lesions have scabbed over. Avoid contact with any individuals. Take Tylenol/Motrin at home as needed for pain/discomfort. Return with new or worsening symptoms. In the case of an emergency call 911. Prescriptions: New valacyclovir [Valtrex] 1 gram tablet 1,000 mg PO TID 7 Days Qty: 21 0RF No Action cefuroxime axetil 500 mg tablet 500 mg PO BID 10 Days Qty: 20 0RF ibuprofen 100 mg/5 mL suspension 600 mg PO Q6H PRN (Reason: fever or pain) Qty: 250 0RF Magic Mouthwash Diphen/Lido/Antacid 1:1:1 240 mL suspension 10 ml PO BID Qty: 240 0RF Rx Instructions: Lidocaine Viscous 2 % 80mL; diphenhydramine 12.5 mg/5 mL 80mL; aluminum-mag hydrox-simeth [id number]/5mL 80mL ciprofloxacin-dexamethasone [Ciprodex] 0.3-0.1 % drops,suspension 4 drp otic (ears) BID 7 Days Qty: 7.5 0RF acyclovir 400 mg tablet 400 mg PO TID 10 Days Qty: 30 0RF naproxen 500 mg tablet 500 mg PO BID PRN (Reason: pain) 7 Days Qty: 14 0RF levothyroxine 75 mcg tablet 75 mcg PO DAILY hydrochlorothiazide 25 mg tablet 37.5 mg PO DAILY lisinopril 10 mg tablet 10 mg PO DAILY loratadine [Claritin] 10 mg tablet 10 mg PO DAILY azithromycin 250 mg tablet See Rx Instructions PO .COMPLEX Qty: 6 0RF Rx Instructions: take 500 mg today (day 1), then 250 mg for 4 days (days 2-5) PO fluconazole [Diflucan] 150 mg tablet 150 mg PO Q3D 0 Days Qty: 2 0RF Stand Alone Forms: Work/School Release Print Language: Vietnamese
[2024-11-04 18:36] VITALS: BP 153/83; PULSE 100; RESP 20; TEMP 36.1; O2SAT 97
== END 2024-11-04 18:37 | disposition home or self-care (01) ==
PROVIDERS: Emergency Provider Emergency Medicine; PCP Nurse Practitioner Family
DX: B02.9 Zoster without complications (principal); R21 Rash and other nonspecific skin eruption
CPT/HCPCS: 99282; 99283